=== PATIENT | female | born 1985 | race Caucasian/White ===

== ENCOUNTER → 2018-03-18 | Day surgery (SDC) | payer OTHER ==
[~2018-03-18] MED LIST: LEVO-T25 MCG PO
== END | disposition home or self-care (01) ==
LOC: CIR.AMB 12:20
DX: O02.1 Missed abortion (principal); Z3A.01 Less than 8 weeks gestation of pregnancy

== ENCOUNTER 2019-01-25 09:03 | Outpatient (CLI) | payer OTHER | END 2019-01-25 10:47 | disposition home or self-care (01) | LOC: NST 09:03 | DX: Z34.82 Encounter for supervision of other normal pregnancy, second trimester (principal) ==